=== PATIENT | female | born 1975 | race Caucasian/White ===

== ENCOUNTER → 2017-12-17 | Outpatient (CLI) | payer OTHER | LOC: FIMAGING 16:00 | PROVIDERS: ATTEND Internal Medicine Endocrinology, Diabetes & Metabolism | DX: E04.1 Nontoxic single thyroid nodule (principal) | CPT/HCPCS: 76536-PO ==

== ENCOUNTER → 2019-03-04 | Outpatient (CLI) | payer OTHER | DX: E04.1 Nontoxic single thyroid nodule (principal) ==

== ENCOUNTER → 2019-04-22 | Outpatient (CLI) | payer OTHER | LOC: FIMAGING 07:08 ==